=== PATIENT | female | born 1970 | race Caucasian/White ===

== ENCOUNTER 2024-01-28 09:02 | Emergency (ER) | payer MEDICARE, MEDICAID ==
[~2024-01-28] VITALS: Ht 162.6 cm; Wt 68.0 kg
[2024-01-28 09:14] VITALS: BP 108/95; PULSE 105; RESP 16; O2SAT 98
[2024-01-28 10:20] VITALS: TEMP 98.8
[2024-01-28] MEDS: ACETAMINOPHEN 325MG TABLET PO ONE (10:20)
[2024-01-28 12:53] LABS: CLARITY URINE TURBID (CLEAR); COLOR URINE YELLOW (YELLOW); GLUCOSE URINE NEGATIVE (NEGATIVE); KETONES URINE NEGATIVE (NEGATIVE); LEUKOCYTE ESTERASE URINE 2+ (NEGATIVE); NITRITE URINE NEGATIVE (NEGATIVE); OCCULT BLOOD URINE NEGATIVE (NEGATIVE); PH URINE >=9.0 (4.5-8.0); PROTEIN URINE 2+ (NEGATIVE); SPECIFIC GRAVITY URINE 1.012 (1.005-1.030)
[2024-01-28 13:04] LABS: TRIPLE PHOSPHATE CRYSTAL URINE 2+ /lpf
[2024-01-28 13:05] LABS: RBC URINE NONE SEEN /hpf (0-2)
[2024-01-28 13:06] LABS: BACTERIA URINE 4+; SQUAMOUS EPITHELIAL CELL URINE NONE SEEN /lpf (RARE/1+)
[2024-01-28] MEDS ORDERED: CEFP100S5 MT (13:14)
[2024-01-28] MEDS ORDERED: CEFP100T8 MT (17:42)
== END 2024-01-28 16:17 | disposition home or self-care (01) ==
LOC: ER 09:02
DX: N39.0 Urinary tract infection, site not specified (principal); E11.9 Type 2 diabetes mellitus without complications; Z98.890 Other specified postprocedural states; Z88.0 Allergy status to penicillin
CPT/HCPCS: 81003; 99283